=== PATIENT | male | born 1985 | race Caucasian/White ===

== ENCOUNTER 2017-06-02 18:14 | Emergency (ER) | payer SELFPAY | END 2017-06-02 18:37 | disposition left against medical advice (07) | LOC: DL.ED 18:14 | DX: Z53.21 Procedure and treatment not carried out due to patient leaving prior to being seen by health care provider (principal) | CPT/HCPCS: 99284 ==

== ENCOUNTER 2017-06-02 18:38 | Emergency (ER) | payer SELFPAY ==
[2017-06-02 19:56] VITALS: BP 140/75
[2017-06-02 20:12] LABS: CHLORIDE,CL 102 mmol/L (101-111); SODIUM,NA 138 mmol/L (135-145)
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
== END 2017-06-02 21:38 | disposition home or self-care (01) ==
LOC: DL.ED 18:38
DX: S00.83XA Contusion of other part of head, initial encounter (principal); S20.212A Contusion of left front wall of thorax, initial encounter; S20.312A Abrasion of left front wall of thorax, initial encounter; Z87.891 Personal history of nicotine dependence; Z98.890 Other specified postprocedural states; Y04.0XXA Assault by unarmed brawl or fight, initial encounter
CPT/HCPCS: 36415; 70450; 70486; 71101; 72131; 80053; 80305; 81001; 82150; 83690; 85025; 99284; G0480

== ENCOUNTER 2017-12-06 03:24 | Emergency (ER) | payer SELFPAY ==
[2017-12-06 03:30] VITALS: BP 127/81
[2017-12-06] MEDS ORDERED: Sodium Chloride 0.9% 10 ML Syringe FLUSH PRN (03:35)
[2017-12-06] MEDS ORDERED: Acetaminophen 325 MG Tab PO ONE (03:36)
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
[2017-12-06 04:13] LABS: CHLORIDE,CL 103 mmol/L (101-111); SODIUM,NA 139 mmol/L (135-145)
== END 2017-12-06 05:05 | disposition home or self-care (01) ==
LOC: DL.ED 03:24
DX: S00.83XA Contusion of other part of head, initial encounter (principal); S00.211A Abrasion of right eyelid and periocular area, initial encounter; F17.210 Nicotine dependence, cigarettes, uncomplicated; Y04.2XXA Assault by strike against or bumped into by another person, initial encounter
CPT/HCPCS: 36415; 70450; 80053; 85025; 99285; A9270; G0480; J7050